=== PATIENT | female | born 2000 | race African-American/Black ===

== ENCOUNTER 2022-10-09 13:52 | Emergency (ER) | payer MEDICAID ==
[~2022-10-09] VITALS: Ht 152.4 cm; Wt 94.0 kg
[2022-10-09 16:35] LABS: BASOPHILS % 0.4 % (0.0-2.0); EOSINOPHILS % 1.1 % (0.0-5.0); HEMATOCRIT. 37.1 % (36.0-48.0); HEMOGLOBIN. 12.4 g/dL (12.0-16.0); MEAN CORPUSCULAR VOLUME 93.1 fL (81.0-99.0); MEAN PLATELET VOLUME 9.9 fl (7.4-10.4); MONOCYTES % 6.1 % (2.0-8.0); NEUTROPHILS % 61.4 % (40.0-76.0); PLATELET 276 x1000/uL (130-400); RED BLOOD CELL COUNT 3.99 mill/uL (4.2-5.4); RED CELL DISTRIBUTION WIDTH 13.3 % (11.6-14.6)
[2022-10-09 16:40] LABS: CLARITY URINE CLEAR (CLEAR); COLOR URINE YELLOW (YELLOW); KETONES URINE NEGATIVE (NEGATIVE); LEUKOCYTE ESTERASE URINE TRACE (NEGATIVE); NITRITE URINE NEGATIVE (NEGATIVE); OCCULT BLOOD URINE 3+ (NEGATIVE); PH URINE 7.5 (4.5-8.0); PROTEIN URINE TRACE (NEGATIVE); SPECIFIC GRAVITY URINE 1.023 (1.005-1.030)
[2022-10-09 18:19] LABS: B-HCG QUANTITATIVE < 1 mIU/mL (<3)
[2022-10-09 18:26] LABS: CHLORIDE 102 mEq/L (98-107)
[2022-10-09] MEDS ORDERED: POTA-205 PO (18:42)
[2022-10-09] MEDS ORDERED: ONDA4TAB50 PO (18:42)
[2022-10-09] MEDS ORDERED: DOXY100T28 PO (18:42)
[2022-10-09] MEDS ORDERED: METR-167 PO (18:42)
[2022-10-09 18:51] VITALS: BP 136/63
[2022-10-12 05:13] LABS: NEISSERIA GONORRHOEAE NAA Negative (Negative)
== END 2022-10-09 18:52 | disposition home or self-care (01) ==
LOC: ER 13:52
DX: N93.9 Abnormal uterine and vaginal bleeding, unspecified (principal); Z20.2 Contact with and (suspected) exposure to infections with a predominantly sexual mode of transmission; N76.0 Acute vaginitis; Z86.19 Personal history of other infectious and parasitic diseases
CPT/HCPCS: 36415; 76830; 76856; 80053; 81003; 81025; 84702; 85025; 87210; 87491; 87591; 99284